=== PATIENT | male | born 1980 | race African-American/Black ===

== ENCOUNTER 2017-08-19 23:09 | Emergency (ER) | payer BC ==
[~2017-08-19] VITALS: Ht 208.3 cm; Wt 81.2 kg
[~2017-08-19 23:09] MED LIST: CEPHALEXIN500 M1 PO; NO HOME MEDICATIONS
[2017-08-19 23:12] VITALS: TEMP 97.8
[2017-08-19] MEDS ORDERED: NAPROSYN500 MG PO (23:15)
[2017-08-20 00:01] VITALS: BP 130/88
[2017-08-20 00:19] LABS: CALCIUM 8.9 mg/dL (8.4-10.2); CREATININE, serum 1.2 mg/dL (0.66-1.25); POTASSIUM 4.1 mmol/L (3.4-5.0)
[2017-08-20 00:40] VITALS: PULSE 67
== END 2017-08-20 00:41 | disposition home or self-care (01) ==
LOC: COL.ER 23:09
PROVIDERS: Emergency Medicine
DX: R03.0 Elevated blood-pressure reading, without diagnosis of hypertension (principal)